=== PATIENT | female | born 1970 | race Caucasian/White ===

== ENCOUNTER 2018-03-10 08:37 | Emergency (ER) | payer MEDICARE, OTHER ==
[~2018-03-10] VITALS: Ht 167.6 cm; Wt 137.0 kg
--- NOTE | 2018-03-10 08:50 | NUR ---
JONAS FROM HOME ACCOMPANIED BY CAREGIVER FOR BEHAVIOR EVALUATION. PER REPORT PATIENT HAS BEEN AGGRESSIVE SINCE LST NIGHT, SCREAMING AND YELLING. PATIENT DENIES SI, NO HI, VSS
[2018-03-10] MEDS ORDERED: OLANZAPINE 5 MG TABLET ONE (09:57)
[2018-03-10] MEDS ORDERED: OLANZAPINE 5 MG TABLET PO ONE (10:00)
[2018-03-10] MEDS ORDERED: DIVALPROEX PO (10:05)
[2018-03-10] MEDS ORDERED: DILANTIN 100 MG (10:05)
[2018-03-10] MEDS ORDERED: BENICAR 20 MG (10:05)
[2018-03-10] MEDS ORDERED: MYRBETRIQ 25 MG (10:05)
[2018-03-10] MEDS ORDERED: RISPERIDONE 2 MG (10:05)
[2018-03-10] MEDS ORDERED: SEROQUEL 50 MG (10:05)
[2018-03-10] MEDS ORDERED: DOCUSATE SODIUM (10:05)
[2018-03-10] MEDS ORDERED: FERROUS SULFATE 325 MG (10:05)
[2018-03-10] MEDS ORDERED: ZOLOFT 100 MG (10:05)
[2018-03-10] MEDS ORDERED: LEVOTHYROXINE (10:05)
[2018-03-10] MEDS ORDERED: OLANZAPINE 10 MG VIAL IM ONE ×4 (10:07→13:00)
--- NOTE | 2018-03-10 10:18 | NUR ---
PATIENT MEDICATED ORDERED. CONNECTED TO TELE MONITOR
[2018-03-10 11:01] LABS: CALCIUM, SERUM 9.3 mg/dL (8.5-10.1); CARBON DIOXIDE 29 mmol/L (21-32); CHLORIDE 102 mmol/L (98-107); CREATININE 0.7 mg/dL (0.6-1.3); GLUCOSE 106 mg/dL (74-106); POTASSIUM 4.4 mmol/L (3.5-5.1); SODIUM SERUM 139 mmol/L (136-145); UREA NITROGEN, BLOOD 6 mg/dL (7-18)
[2018-03-10 11:05] LABS: BASOPHILS % (AUTO) 0.5 % (0.0-2.0); EOSINOPHILS % (AUTO) 1.9 % (0.0-6.0); HEMATOCRIT 38 % (33-45); HEMOGLOBIN 13.1 g/dL (11.5-14.8); LYMPHOCYTES # (AUTO) 1.7 /CMM (0.8-4.8); LYMPHOCYTES % (AUTO) 28.7 % (20.0-44.0); MEAN CORPUSCULAR HGB CONC 35 g/dl (31.0-36.0); MEAN CORPUSCULAR VOLUME 92 fL (82-100); MONOCYTES # (AUTO) 0.6 /CMM (0.1-1.30); NEUTROPHILS # (AUTO) 3.6 /CMM (1.8-8.9); NEUTROPHILS % (AUTO) 58.9 % (43.0-81.0); PLATELET COUNT (AUTO) 205 /CMM (150-450); RDW COEFFICIENT OF VARIATION 12.9 (11.5-15.0); RED BLOOD CELL COUNT(AUTO) 4.12 MIL/uL (4.0-5.2)
[2018-03-10 11:07] LABS: ALANINE AMINOTRANSFERASE 22 U/L (12-78); ALBUMIN 3.5 g/dL (3.4-5.0); ALCOHOL, BLOOD < 3 mg/dL (0-0); ALKALINE PHOSPHATASE 66 U/L (46-116); ASPARTATE AMINOTRANSFERASE 19 U/L (15-37); BILIRUBIN,DIRECT 0.1 mg/dL (0.0-0.2); BILIRUBIN,TOTAL 0.3 mg/dL (0.2-1.0)
[2018-03-10 11:49] LABS: THYROID STIMULATING HORMONE 3.349 uIU/mL (0.358-3.74); VALPROIC ACID 38 ug/mL (50-100)
[2018-03-10] MEDS ORDERED: VALPROATE 500 MG in IV NS 0.9% 100 ML IV STA (12:00)
[2018-03-10] MEDS ORDERED: DIVALPROEX SODIUM 500 MG TABLET.DR PO ONE ×2 (12:04→12:30)
--- NOTE | 2018-03-10 12:04 | NUR ---
CALLED [facility] FOR PSYCH EVAL, ETA WITHIN THE HOUR
--- NOTE | 2018-03-10 12:30 | NUR ---
PT RESTLESS, EXTREMELY AGITATED, YELLING, SCREAMING, REMOVED ALL HER CLOTHES. FATHER AT BS WITH CAREGIVER AND REFUSES TO HELP WITH PT. RECEIVED MEDS ORDERED BY DR. RUBIO. PT'S FATHER MADE AWARE ABOUT THE MEDS ORDERED AND REFUSED MEDS STATING THAT PT HAD SEIZURE FROM PREVIOUS MEDS GIVEN BACK IN 2004. FATHER DOES NOT WANT TO COOPERATE WITH THE ORDERS, URINE SAMPLE NOT OBATINED, REFUSED BY FATHER WELL. MADE AWARE.
[2018-03-10] MEDS ORDERED: LORAZEPAM INJ 2 MG/ML VIAL ONE ×2 (12:43→23:54)
[2018-03-10] MEDS ORDERED: LORAZEPAM INJ 2 MG/ML VIAL IM ONE (13:00)
[2018-03-10 13:52] LABS: PHENYTOIN (DILANTIN) 5.3 ug/ml (10.0-20.0)
--- NOTE | 2018-03-10 17:45 | NUR ---
PER PATIENT'S FATHER, PATIENT HAD SEIZURE. ASSESSED PATIENT AND NO EVIDENCE OF SEIZURE NOR POST ICTAL. PT;S VSS
--- NOTE | 2018-03-10 18:11 | NUR ---
PATIENT FOR RE- EVAL-- PLACEMENT. AWAITING FOR RN TEST BORE HELPER
--- NOTE | 2018-03-10 18:56 | NUR ---
AWAITING FOR [facility] RN. PATIENT'S FATHER AND CG AT BEDSIDE
--- NOTE | 2018-03-10 19:17 | NUR ---
[facility] RN AT BS
[2018-03-10 19:20] LABS: APPEARANCE,URINE CLEAR (CLEAR); BILIRUBIN,URINE NEGATIVE (NEGATIVE); BLOOD, URINE TRACE Ery/uL (NEGATIVE); COLOR,URINE YELLOW (YELLOW); KETONES,URINE NEGATIVE (NEGATIVE); LEUKOCYTE ESTERASE ,URINE NEGATIVE (NEGATIVE); NITRITE, URINE NEGATIVE (NEGATIVE); PROTEIN,URINE NEGATIVE (NEGATIVE); UGLUCOSE NEGATIVE (NEGATIVE); UROBILINOGEN,URINE 0.2 EU/dL (0.2)
[2018-03-10 19:37] LABS: BACTERIA,URINE 1+ /HPF (None Seen)
--- NOTE | 2018-03-10 22:15 | NUR ---
[facility] at bedside.
[2018-03-10] MEDS ORDERED: risperiDONE 1 MG TABLET ONE (22:38)
[2018-03-10] MEDS ORDERED: risperiDONE 1 MG TABLET PO ONE (23:00)
--- NOTE | 2018-03-10 23:45 | NUR ---
pt becoming agitated, screaming. Dr Fraser notified.
[2018-03-10] MEDS ORDERED: ZIPRASIDONE MESYLATE 20 MG/VIAL VIAL IM ONE (23:53)
[2018-03-11] MEDS ORDERED: ZIPRASIDONE MESYLATE 20 MG/VIAL VIAL IM ONE
[2018-03-11] MEDS ORDERED: LORAZEPAM INJ 2 MG/ML VIAL IM ONE
--- NOTE | 2018-03-11 02:51 | NUR ---
pt sitting in gurney. calm. no signs of distress noted. caregiver at bedside.
--- NOTE | 2018-03-11 05:07 | NUR ---
pt sleeping in [place]. no signs of dsitress noted. pt vital signs stable. caregiver at bedside. will cont to monitor pt.
--- NOTE | 2018-03-11 08:09 | NUR ---
CALLED AND SPOKE, TO FATHER EDUARDO CORDERO TO NOTIFY PT IS READY FOR DISCHARGE. FATHER STATES HE IS ON HIS WAY
[2018-03-11 09:23] VITALS: BP 145/92
--- NOTE | 2018-03-11 09:25 | NUR ---
Patient discharged to father to go back home in stable condition. Written and verbal after care instructions given. Patient's father and caregiver verbalizes understanding of instructions given. Pt wheelchaired out by RONALD Linda to the car. VSS upon discharge.
== END 2018-03-11 09:24 | disposition home or self-care (01) ==
LOC: ER 08:39
DX: F23 Brief psychotic disorder (principal); Z72.89 Other problems related to lifestyle; G40.909 Epilepsy, unspecified, not intractable, without status epilepticus; F84.0 Autistic disorder
CPT/HCPCS: 36415; 80048-TC; 80076-TC; 80164-TC; 80185-TC; 80305; 81000-TC; 84439-TC; 84443-TC; 85025-TC; A4606; G0480; J2060; J3486; J3490; J7030; Z7610

== ENCOUNTER 2018-05-11 15:37 | Emergency (ER) | payer MEDICARE, OTHER ==
[~2018-05-11] VITALS: Ht 167.6 cm; Wt 137.0 kg
[~2018-05-11 15:37] MED LIST: BENICAR 20 MG; DILANTIN 100 MG; DIVALPROEX PO; DOCUSATE SODIUM; FERROUS SULFATE 325 MG; LEVOTHYROXINE; MYRBETRIQ 25 MG; RISPERIDONE 2 MG; SEROQUEL 50 MG; ZOLOFT 100 MG
--- NOTE | 2018-05-11 15:40 | NUR ---
CAREGIVER CALLED D/T AGITATION, YELLING, AND HITTING SELF TODAY, HX SEVERE AUTISM. UNABLE TO OBTAIN VS AT THIS TIME, WILL REASSESS, NAD NOTED, VSS, RESP EVEN AND UNLABORED, PT WAS PUT ON MONITOR, WAITING FOR MD CARRION.
[2018-05-11] MEDS ORDERED: LORAZEPAM INJ 2 MG/ML VIAL IM ONE ×3 (16:00→20:00)
[2018-05-11] MEDS ORDERED: OLANZAPINE 10 MG VIAL IM ONE ×4 (16:00→20:00)
[2018-05-11] MEDS ORDERED: LORAZEPAM INJ 2 MG/ML VIAL ONE ×4 (16:02→19:50)
[2018-05-11] MEDS ORDERED: diphenhydrAMINE HCL 50 MG/ML VIAL ONE (16:58)
[2018-05-11] MEDS ORDERED: diphenhydrAMINE HCL 50 MG/ML VIAL IM ONE (17:00)
[2018-05-11 17:49] LABS: APPEARANCE,URINE Cloudy (CLEAR); BILIRUBIN,URINE Negative (NEGATIVE); BLOOD, URINE Moderate Ery/uL (NEGATIVE); COLOR,URINE Yellow (YELLOW); KETONES,URINE Trace (NEGATIVE); LEUKOCYTE ESTERASE ,URINE Small (NEGATIVE); NITRITE, URINE Positive (NEGATIVE); PH,URINE 6.5 (5.0-8.0); PROTEIN,URINE 100 mg/dl (NEGATIVE); UGLUCOSE Negative (NEGATIVE); UROBILINOGEN,URINE 0.2 EU/dL (0.2)
[2018-05-11 18:03] LABS: RBC,URINE 21-50 /HPF (0-2)
[2018-05-11 18:04] LABS: BACTERIA,URINE Many /HPF (None Seen)
[2018-05-11 18:05] LABS: SQUAMOUS EPITHELIAL CELL,UR Few /HPF (None Seen)
[2018-05-11 18:26] LABS: LYMPHOCYTES # (AUTO) 1.5 /CMM (0.8-4.8); PLATELET COUNT (AUTO) 199 /CMM (150-450); WHITE BLOOD COUNT (AUTO) 6.8 K/uL (4.3-11.0)
[2018-05-11 18:28] LABS: BASOPHILS % (AUTO) 0.3 % (0.0-2.0); EOSINOPHILS % (AUTO) 0.5 % (0.0-6.0); HEMATOCRIT 38 % (33-45); HEMOGLOBIN 13.4 g/dL (11.5-14.8); LYMPHOCYTES % (AUTO) 22.3 % (20.0-44.0); MEAN CORPUSCULAR HGB CONC 35 g/dl (31.0-36.0); MEAN CORPUSCULAR VOLUME 94 fL (82-100); MONOCYTES # (AUTO) 0.4 /CMM (0.1-1.30); MONOCYTES % (AUTO) 6.2 % (2.0-12.0); NEUTROPHILS # (AUTO) 4.9 /CMM (1.8-8.9); NEUTROPHILS % (AUTO) 70.7 % (43.0-81.0); RDW COEFFICIENT OF VARIATION 13.1 (11.5-15.0); RED BLOOD CELL COUNT(AUTO) 4.08 MIL/uL (4.0-5.2)
[2018-05-11 18:41] LABS: ALANINE AMINOTRANSFERASE 21 U/L (12-78); ALBUMIN 3.6 g/dL (3.4-5.0); ALCOHOL, BLOOD < 3 mg/dL (0-0); ALKALINE PHOSPHATASE 91 U/L (46-116); ASPARTATE AMINOTRANSFERASE 27 U/L (15-37); BILIRUBIN,DIRECT 0.1 mg/dL (0.0-0.2); BILIRUBIN,TOTAL 0.2 mg/dL (0.2-1.0); CALCIUM, SERUM 9.9 mg/dL (8.5-10.1); CARBON DIOXIDE 25 mmol/L (21-32); CHLORIDE 103 mmol/L (98-107); CREATININE 0.8 mg/dL (0.6-1.3); GLUCOSE 149 mg/dL (74-106); POTASSIUM 4.2 mmol/L (3.5-5.1); SODIUM SERUM 139 mmol/L (136-145); TOTAL PROTEIN, SERUM 8.2 g/dL (6.4-8.2); UREA NITROGEN, BLOOD 13 mg/dL (7-18)
[2018-05-11 18:42] LABS: ACETAMINOPHEN 0 ug/ml (10-30); SALICYLATE 1.6 mg/dL (2.8-20.0)
--- NOTE | 2018-05-11 19:29 | NUR ---
CALLED CASEMANAGER, PER ZAYAGER, FAMILY HAS TO CALL CT [facility] AND THE FAMILY KNOWS THIS.
[2018-05-11] MEDS ORDERED: CEPHALEXIN MONOHYDRATE 500 MG CAPSULE PO ONE ×2 (19:45→20:00)
--- NOTE | 2018-05-11 20:03 | NUR ---
TEZ PAGED, ASHISH HOOVER HAND CARVER COURT SPECIALIST
--- NOTE | 2018-05-11 20:07 | NUR ---
CALLED NURSING SUP. FOR MS BED
[2018-05-11 21:25] VITALS: BP 145/80
--- NOTE | 2018-05-11 21:25 | NUR ---
Patient discharged to home in stable condition. Written and verbal after care instructions given. Patient verbalizes understanding of instruction. Prescription given.
[2018-05-12] MEDS ORDERED: LEVO100T9 PO (18:17)
[2018-05-12] MEDS ORDERED: DIVA-78 PO ×2 (18:17)
[2018-05-12] MEDS ORDERED: QUET50TA14 PO (18:17)
[2018-05-12] MEDS ORDERED: PHEN100C4 PO (18:17)
[2018-05-12] MEDS ORDERED: LOSA25TA13 PO (18:17)
[2018-05-12] MEDS ORDERED: FERR325T24 PO (18:17)
[2018-05-12] MEDS ORDERED: DOCU-270 PO (18:17)
[2018-05-12] MEDS ORDERED: SERT100T12 PO (18:17)
[2018-05-12] MEDS ORDERED: OLME20TA13 PO (18:17)
== END 2018-05-11 21:26 | disposition home or self-care (01) ==
LOC: ER 15:39
DX: R45.1 Restlessness and agitation (principal); N39.0 Urinary tract infection, site not specified; G40.909 Epilepsy, unspecified, not intractable, without status epilepticus; F20.9 Schizophrenia, unspecified; E03.9 Hypothyroidism, unspecified; F84.0 Autistic disorder
CPT/HCPCS: 36415; 80048-TC; 80076-TC; 80305; 81000-TC; 84703-TC; 85025-TC; 87086-TC; 87186-TC; A4606; G0480; J1200; J2060; J3490; Z7610

== ENCOUNTER 2018-05-12 15:59 | Emergency (ER) | payer MEDICARE, OTHER ==
[~2018-05-12] VITALS: Ht 154.9 cm; Wt 132.0 kg
--- NOTE | 2018-05-12 16:10 | NUR ---
PT BIBRA WITH [employer] FROM HOME FOR INCREASED PHYSICAL AGGRESSION. PT WAS HERE YESTERDAY. NOTED SCREAMING, AGITATED. CAREGIVER AT BS. SEEN BY FOR EDUAR. VSS. SAFETY AND COMFORT MEASURES PROVIDED. WILL MONITOR.
[2018-05-12] MEDS ORDERED: HALOPERIDOL LACTATE INJ 5 MG/ML VIAL ONE (16:11)
[2018-05-12] MEDS ORDERED: diphenhydrAMINE HCL 50 MG/ML VIAL ONE (16:11)
[2018-05-12] MEDS ORDERED: LORAZEPAM INJ 2 MG/ML VIAL ONE (16:12)
[2018-05-12] MEDS ORDERED: HALOPERIDOL LACTATE INJ 5 MG/ML VIAL IM ONE (16:30)
[2018-05-12] MEDS ORDERED: LORAZEPAM INJ 2 MG/ML VIAL IM ONE (16:30)
[2018-05-12] MEDS ORDERED: diphenhydrAMINE HCL 50 MG/ML VIAL IM ONE (16:30)
--- NOTE | 2018-05-12 16:30 | NUR ---
PT MEDICATED ORDERED.
--- NOTE | 2018-05-12 16:45 | NUR ---
[facility] [employer]EVERAGE UNABLE TO DRAW BLOOD, PT STILL AGITATED AND REFUSES BLOOD DRAW.
--- NOTE | 2018-05-12 17:15 | NUR ---
PT'S FATHER AT BS. MARES SPOKE TO HIM ABOUT POC. AWAITING FOR HIM TO CONTACT HOTLINE NUMBER FOR THE DAUGHTER'S INSURANCE FOR [employer] TRANSFER.
--- NOTE | 2018-05-12 18:00 | NUR ---
MAINTENANCE CLERK AT FOR BLOOD DRAW.
[2018-05-12 18:13] LABS: BASOPHILS % (AUTO) 0.5 % (0.0-2.0); EOSINOPHILS % (AUTO) 0.2 % (0.0-6.0); HEMATOCRIT 36 % (33-45); HEMOGLOBIN 12.8 g/dL (11.5-14.8); LYMPHOCYTES # (AUTO) 1.3 /CMM (0.8-4.8); LYMPHOCYTES % (AUTO) 17.2 % (20.0-44.0); MEAN CORPUSCULAR HGB CONC 35 g/dl (31.0-36.0); MEAN CORPUSCULAR VOLUME 94 fL (82-100); MONOCYTES # (AUTO) 0.2 /CMM (0.1-1.30); MONOCYTES % (AUTO) 2.9 % (2.0-12.0); NEUTROPHILS # (AUTO) 5.9 /CMM (1.8-8.9); NEUTROPHILS % (AUTO) 79.2 % (43.0-81.0); PLATELET COUNT (AUTO) 186 /CMM (150-450); RDW COEFFICIENT OF VARIATION 13.2 (11.5-15.0); RED BLOOD CELL COUNT(AUTO) 3.85 MIL/uL (4.0-5.2); WHITE BLOOD COUNT (AUTO) 7.4 K/uL (4.3-11.0)
[2018-05-12 18:16] LABS: CALCIUM, SERUM 9.5 mg/dL (8.5-10.1); CARBON DIOXIDE 28 mmol/L (21-32); CHLORIDE 101 mmol/L (98-107); CREATININE 0.8 mg/dL (0.6-1.3); GLUCOSE 118 mg/dL (74-106); POTASSIUM 4.4 mmol/L (3.5-5.1); SODIUM SERUM 137 mmol/L (136-145); UREA NITROGEN, BLOOD 16 mg/dL (7-18)
[2018-05-12] MEDS ORDERED: FERR325T24 PO (18:17)
[2018-05-12] MEDS ORDERED: PHEN100C4 PO (18:17)
[2018-05-12] MEDS ORDERED: DOCU-270 PO (18:17)
[2018-05-12] MEDS ORDERED: QUET50TA14 PO (18:17)
[2018-05-12] MEDS ORDERED: DIVA-78 PO ×2 (18:17)
[2018-05-12] MEDS ORDERED: SERT100T12 PO (18:17)
[2018-05-12] MEDS ORDERED: LEVO100T9 PO (18:17)
[2018-05-12] MEDS ORDERED: OLME20TA13 PO (18:17)
[2018-05-12] MEDS ORDERED: LOSA25TA13 PO (18:17)
[2018-05-12 18:22] LABS: ALANINE AMINOTRANSFERASE 19 U/L (12-78); ALBUMIN 3.6 g/dL (3.4-5.0); ALCOHOL, BLOOD < 3 mg/dL (0-0); ALKALINE PHOSPHATASE 79 U/L (46-116); ASPARTATE AMINOTRANSFERASE 21 U/L (15-37); BILIRUBIN,DIRECT 0.1 mg/dL (0.0-0.2); BILIRUBIN,TOTAL 0.2 mg/dL (0.2-1.0); TOTAL PROTEIN, SERUM 7.9 g/dL (6.4-8.2)
[2018-05-12 18:23] LABS: SALICYLATE 1.2 mg/dL (2.8-20.0)
[2018-05-12 18:26] LABS: ACETAMINOPHEN < 2 ug/ml (10-30)
--- NOTE | 2018-05-12 19:00 | NUR ---
PT NOTED AWAKE AND CALM IN BED. THERAPIST/CG AT BS. WILL MONITOR.
--- NOTE | 2018-05-12 21:46 | NUR ---
PT'S DAD AT BS AND REPORTS THAT HE IS UNABLE TO COMMUNICATE WITH THE HOTLINE FOR [place]. MD AWARE. CG/THERAPIST REMAINS AT BS. PT REMAINS AWAKE AND CALM. REFUSES TO GIVE URINE SAMPLE AND REFUSES VS CHECK.
--- NOTE | 2018-05-13 03:00 | NUR ---
patient started yelling, not following directions of [facility] ED staff. MD Bhatia notified, medicated patient as ordered
[2018-05-13] MEDS ORDERED: OLANZAPINE 10 MG VIAL IM ONE ×4 (03:03→19:34)
[2018-05-13] MEDS ORDERED: LORAZEPAM INJ 2 MG/ML VIAL ONE ×2 (03:03→19:34)
[2018-05-13] MEDS ORDERED: LORAZEPAM INJ 2 MG/ML VIAL IM/IV ONE ×2 (03:30→19:30)
--- NOTE | 2018-05-13 04:00 | NUR ---
patient is now calm, resting in er bed, no distress noted. skin warm and dry, resp even and unlabored
--- NOTE | 2018-05-13 07:06 | NUR ---
PATIENT IS RESTING IN ER BED, NO DISTRESS NOTED WILL CONTINUE TO MONITOR
--- NOTE | 2018-05-13 09:46 | NUR ---
IMANI CALLED AND SPOKE WITH HEMANTH BELLO.
--- NOTE | 2018-05-13 11:20 | NUR ---
CALLED [facility] FOR A FOOD TRAY
--- NOTE | 2018-05-13 12:00 | NUR ---
PER DR. HENRIQUEZ HE IS NOT COMFORTABLE DISCHARGING PT TO HOME. PT'S DAD UPDATED WITH POC. PT REMAINS WITH THERAPIST/CG AT BS. PT IS NOTED AWAKE AND CALM.
--- NOTE | 2018-05-13 14:10 | NUR ---
ACCORDING TO PT'S DAD, HE HAS BEEN CALLING THE HOTLINE FOR HIS DAUGHTER'S CASE BUT HAS NOT BEEN RECEIVING ANY RESPONSE.
--- NOTE | 2018-05-13 16:05 | NUR ---
PT REFUSES VS CHECK.
--- NOTE | 2018-05-13 18:30 | NUR ---
CALLED FOOD TRAY FOR PT.
--- NOTE | 2018-05-13 19:15 | NUR ---
PT NOTED AGITATED AND RESTLESS, SCREAMING. CG AND DAD AT THE BS. MD AWARE. RECEIVED ORDERS, ORDERS CARRIED OUT. WILL MONITOR.
--- NOTE | 2018-05-13 21:26 | NUR ---
RECEIVED REPORT FROM DIONE PLATA FOR TUCKER.
--- NOTE | 2018-05-13 21:54 | NUR ---
CAREGIVER, TOMÁS AT BEDSIDE
--- NOTE | 2018-05-13 22:52 | NUR ---
PT REFUSED TO DO VS AT THIS TIME. RISK AND BENEFITS EXPLAINED X3. PT REMOVED SP02 AND BP CUFF. CAREGIVER AT BEDSIDE.
--- NOTE | 2018-05-14 01:02 | NUR ---
RESPatient is resting comfortably in bed with eyes closed. Easily aroused. caregiver at bedside for eval.
--- NOTE | 2018-05-14 03:22 | NUR ---
Patient is resting comfortably in bed with eyes closed. Easily aroused. caregiver at bedside for eval. pt refused vs at this time. risk and benefits explained x3. pt continues to remove bp cuff and sp02.
--- NOTE | 2018-05-14 06:37 | NUR ---
RPatient is resting comfortably in bed with eyes closed. Easily aroused. VSS
--- NOTE | 2018-05-14 06:52 | NUR ---
PER CAREGIVE REMOVED PULSE OX AND BP CUFF. RISK AND BENEFITS EXPLAINED X3.
--- NOTE | 2018-05-14 07:52 | NUR ---
PT AND CAREGIVER REC'D BREAKFAST TRAYS. PT APPEARS TO BE SLEEPING SOUNDLY.
--- NOTE | 2018-05-14 09:00 | NUR ---
LUCIANO received a call from nursing spinning and winding supervisor Julia informing LUCIANO that pt. has been here since Monday and pt's father is unable to care for pt. at home. LUCIANO met with pt's father in the ED. Pt. has severe autism and behavioral issues. Pt. is a consumer of the [facility]. Per dad, pt's CSC at [facility] is Primitivo Eng. LUCIANO informed pt's dad that he needs to speak to Primitivo the [facility] to assist him in placing the pt. in a [facility] for individuals with Special needs. [facility] Primitivo is responsible for finding pt. placement. Pt's dad Colleen informed LUCIANO he has left several messages for Primitivo. LUCIANO recommended he go to the [facility] this morning and speak to Primitivo, if he is not available to ask for the officer of the day or the spinning and winding supervisor. LUCIANO also called CSC Primitivo Eng at the [facility] and left him a voicemail message stating to assist the father is finding appropriate placement for the pt. Colleen informed LUCIANO he will take the pt. home and leave her with the caregiver and go to the [facility]. No other social service needs are requested at this time. SW is available, if needed. LUCIANO updated Dr. Rutherford and DIONE Gleason regarding the discharge plan.
--- NOTE | 2018-05-14 09:15 | NUR ---
LISHA, EXTERIOR DOOR INSTALLER, WAS AT THE BEDSIDE SPEAKING TO THE PT'S FATHER. PT TO BE D\C'D TO THE FATHER'S CARE.
[2018-05-14 09:31] VITALS: BP 138/78
== END 2018-05-14 09:29 | disposition home or self-care (01) ==
LOC: ER 16:01
DX: R46.89 Other symptoms and signs involving appearance and behavior (principal); F20.9 Schizophrenia, unspecified; G40.909 Epilepsy, unspecified, not intractable, without status epilepticus; F84.0 Autistic disorder
CPT/HCPCS: 36415; 80048-TC; 80076-TC; 84703-TC; 85025-TC; A4606; G0480; J1200; J1630; J2060; J3490; Z7610

== ENCOUNTER 2018-11-21 17:43 | Emergency (ER) | payer MEDICARE, OTHER ==
[~2018-11-21] VITALS: Ht 154.9 cm; Wt 133.8 kg
[~2018-11-21 17:43] MED LIST changes: -BENICAR 20 MG; -DILANTIN 100 MG; +DIVA-78 PO; -DIVALPROEX PO; +DOCU-270 PO; -DOCUSATE SODIUM; +FERR325T24 PO; -FERROUS SULFATE 325 MG; +LEVO100T9 PO; -LEVOTHYROXINE; +LOSA25TA27 PO; +OLME20TA13 PO; +PHEN100C4 PO; +QUET50TA15 PO; -RISPERIDONE 2 MG; -SEROQUEL 50 MG; +SERT100T12 PO; -ZOLOFT 100 MG
--- NOTE | 2018-11-21 17:54 | NUR ---
JONAS FROM HOME AGITATED, FAMILY CANT TAKE CARE OF HER. TO ER BED 5, HOOKED TO MONITOR, AWAITING MD CARRION
[2018-11-21] MEDS ORDERED: diphenhydrAMINE HCL 50 MG/ML VIAL ONE (17:58)
[2018-11-21] MEDS ORDERED: OLANZAPINE 10 MG VIAL IM ONE (17:58)
[2018-11-21] MEDS: diphenhydrAMINE HCL 50 MG/ML VIAL IM ONE (18:07)
[2018-11-21] MEDS: OLANZAPINE 10 MG VIAL IM ONE (18:07)
--- NOTE | 2018-11-21 18:25 | NUR ---
URINE SAMPLE SENT TO LAB
[2018-11-21 18:29] LABS: BASOPHILS % (AUTO) 0.3 % (0.0-2.0); EOSINOPHILS % (AUTO) 1.2 % (0.0-6.0); HEMATOCRIT 46 % (33-45); HEMOGLOBIN 15.2 g/dL (11.5-14.8); LYMPHOCYTES # (AUTO) 4.1 /CMM (0.8-4.8); LYMPHOCYTES % (AUTO) 46.4 % (20.0-44.0); MEAN CORPUSCULAR HGB CONC 33 g/dl (31.0-36.0); MEAN CORPUSCULAR VOLUME 97 fL (82-100); MONOCYTES # (AUTO) 0.8 /CMM (0.1-1.30); MONOCYTES % (AUTO) 8.7 % (2.0-12.0); NEUTROPHILS # (AUTO) 3.8 /CMM (1.8-8.9); NEUTROPHILS % (AUTO) 43.4 % (43.0-81.0); PLATELET COUNT (AUTO) 206 /CMM (150-450); RED BLOOD CELL COUNT(AUTO) 4.69 MIL/uL (4.0-5.2); WHITE BLOOD COUNT (AUTO) 8.8 K/uL (4.3-11.0)
[2018-11-21 18:35] LABS: APPEARANCE,URINE Clear (CLEAR); BILIRUBIN,URINE SMALL (NEGATIVE); BLOOD, URINE Small Ery/uL (NEGATIVE); COLOR,URINE Yellow (YELLOW); KETONES,URINE Trace (NEGATIVE); LEUKOCYTE ESTERASE ,URINE Negative (NEGATIVE); NITRITE, URINE Negative (NEGATIVE); PH,URINE 5.5 (5.0-8.0); PROTEIN,URINE Negative (NEGATIVE); UGLUCOSE Negative (NEGATIVE); UROBILINOGEN,URINE 0.2 EU/dL (0.2)
[2018-11-21 18:39] LABS: CALCIUM, SERUM 9.9 mg/dL (8.5-10.1); CARBON DIOXIDE 27 mmol/L (21-32); CHLORIDE 102 mmol/L (98-107); CREATININE 0.9 mg/dL (0.6-1.3); GLUCOSE 133 mg/dL (74-106); POTASSIUM 4.3 mmol/L (3.5-5.1); SODIUM SERUM 142 mmol/L (136-145); UREA NITROGEN, BLOOD 17 mg/dL (7-18)
[2018-11-21 18:39] LABS: BACTERIA,URINE Rare /HPF (None Seen); SQUAMOUS EPITHELIAL CELL,UR Few /HPF (None Seen); WBC,URINE 0-2 /HPF (0-3)
[2018-11-21 18:44] LABS: ALANINE AMINOTRANSFERASE 23 U/L (12-78); ALCOHOL, BLOOD < 3 mg/dL (0-0); ALKALINE PHOSPHATASE 139 U/L (46-116); ASPARTATE AMINOTRANSFERASE 18 U/L (15-37); BILIRUBIN,TOTAL 0.2 mg/dL (0.2-1.0); TOTAL PROTEIN, SERUM 8.6 g/dL (6.4-8.2)
[2018-11-21 18:45] LABS: ACETAMINOPHEN < 2 ug/ml (10-30); SALICYLATE 1.2 mg/dL (2.8-20.0)
--- NOTE | 2018-11-21 19:17 | NUR ---
RECEIVED VERBAL ORDER FROM DR LITTLE OF [facility].
[2018-11-21] MEDS ORDERED: LORAZEPAM INJ 2 MG/ML VIAL ONE (19:18)
[2018-11-21] MEDS: LORAZEPAM INJ 2 MG/ML VIAL IM ONE (19:27)
--- NOTE | 2018-11-21 19:37 | NUR ---
REPORT GIVEN TO ZULEMA PARHAM FOR TUCKER
--- NOTE | 2018-11-21 19:45 | NUR ---
SPOKE TO PATIENT'S FAMILY MEMBER MEGHANA, UPDATED REGARDING PLAN OF CARE, WITH VERBALIZATION OF UNDERSTANDING. PHONE NUMBER [phone]
[2018-11-21 22:11] VITALS: BP 129/88
== END 2018-11-21 22:12 | disposition home or self-care (01) ==
LOC: ER 17:46
DX: R45.1 Restlessness and agitation (principal); F84.0 Autistic disorder; G40.909 Epilepsy, unspecified, not intractable, without status epilepticus; F20.9 Schizophrenia, unspecified; Z79.899 Other long term (current) drug therapy
CPT/HCPCS: 36415; 80048-TC; 80076-TC; 80305; 81000-TC; 85025-TC; G0480; J1200; J2060; J3490

== ENCOUNTER 2019-10-08 11:10 | Emergency (ER) | payer MEDICARE, OTHER ==
[~2019-10-08] VITALS: Ht 154.9 cm; Wt 133.8 kg
--- NOTE | 2019-10-08 11:20 | NUR ---
Pt [id number] and lapd, from home, aggressive, combative, yelling and screaming. Pt aaox4, vss, breathing even and unlabored on room air w/ nad. Pt connected to the monitor.
--- NOTE | 2019-10-08 11:22 | NUR ---
AT BEDSIDE FOR EVAL.
[2019-10-08 11:40] LABS: BASOPHILS % (AUTO) 0.2 % (0.0-2.0); EOSINOPHILS % (AUTO) 0.8 % (0.0-6.0); HEMATOCRIT 39 % (33-45); HEMOGLOBIN 13.2 g/dL (11.5-14.8); LYMPHOCYTES # (AUTO) 1.4 /CMM (0.8-4.8); LYMPHOCYTES % (AUTO) 24.6 % (20.0-44.0); MEAN CORPUSCULAR HGB CONC 34 g/dl (31.0-36.0); MEAN CORPUSCULAR VOLUME 96 fL (82-100); MONOCYTES # (AUTO) 0.4 /CMM (0.1-1.30); MONOCYTES % (AUTO) 7.2 % (2.0-12.0); NEUTROPHILS # (AUTO) 3.8 /CMM (1.8-8.9); NEUTROPHILS % (AUTO) 67.2 % (43.0-81.0); PLATELET COUNT (AUTO) 188 /CMM (150-450); RED BLOOD CELL COUNT(AUTO) 4.09 MIL/uL (4.0-5.2); WHITE BLOOD COUNT (AUTO) 5.7 K/uL (4.3-11.0)
[2019-10-08 11:47] LABS: CALCIUM, SERUM 9.7 mg/dL (8.5-10.1); CARBON DIOXIDE 27 mmol/L (21-32); CHLORIDE 104 mmol/L (98-107); CREATININE 0.9 mg/dL (0.6-1.3); GLUCOSE 150 mg/dL (74-106); POTASSIUM 3.6 mmol/L (3.5-5.1); SODIUM SERUM 142 mmol/L (136-145); UREA NITROGEN, BLOOD 13 mg/dL (7-18)
[2019-10-08 11:54] LABS: ALANINE AMINOTRANSFERASE 20 U/L (12-78); ALBUMIN 3.7 g/dL (3.4-5.0); ALCOHOL, BLOOD < 3 mg/dL (0-0); ALKALINE PHOSPHATASE 102 U/L (46-116); ASPARTATE AMINOTRANSFERASE 15 U/L (15-37); BILIRUBIN,DIRECT 0.1 mg/dL (0.0-0.2); BILIRUBIN,TOTAL 0.2 mg/dL (0.2-1.0); TOTAL PROTEIN, SERUM 7.8 g/dL (6.4-8.2)
[2019-10-08 11:56] LABS: ACETAMINOPHEN < 2 ug/ml (10-30); SALICYLATE 1.6 mg/dL (2.8-20.0)
--- NOTE | 2019-10-08 12:02 | NUR ---
URINE COLLECTED AND SENT TO LAB
[2019-10-08 12:17] LABS: APPEARANCE,URINE Clear (CLEAR); BILIRUBIN,URINE Negative (NEGATIVE); BLOOD, URINE Trace-intact Ery/uL (NEGATIVE); COLOR,URINE Yellow (YELLOW); KETONES,URINE Negative (NEGATIVE); LEUKOCYTE ESTERASE ,URINE Negative (NEGATIVE); NITRITE, URINE Negative (NEGATIVE); PROTEIN,URINE Trace mg/dl (NEGATIVE); UGLUCOSE Negative (NEGATIVE); UROBILINOGEN,URINE 0.2 EU/dL (0.2)
[2019-10-08 12:22] LABS: BACTERIA,URINE Few /HPF (None Seen); SQUAMOUS EPITHELIAL CELL,UR Few /HPF (None Seen)
--- NOTE | 2019-10-08 12:40 | NUR ---
CALLED JONATAN PARHAM CRISISTEAM FOR PSYCH EVAL.
--- NOTE | 2019-10-08 13:07 | NUR ---
Patient is resting comfortably in bed with eyes closed. Easily aroused. VSS. Family at bedside
[2019-10-08] MEDS ORDERED: TOLT2TAB2 PO (13:29)
[2019-10-08] MEDS ORDERED: RISP2TAB23 PO (13:29)
[2019-10-08] MEDS ORDERED: MULT-439 PO (13:29)
[2019-10-08 13:51] LABS: VALPROIC ACID 50 ug/mL (50-100)
--- NOTE | 2019-10-08 14:14 | NUR ---
Patient is resting comfortably in bed with eyes closed. Easily aroused. VSS
--- NOTE | 2019-10-08 14:15 | NUR ---
RN JONATAN CRISISTEAM AT BEDSIDE FOR EVAL.
--- NOTE | 2019-10-08 15:29 | NUR ---
Patient discharged to home in stable condition. Written and verbal after care instructions given. Patient verbalizes understanding of instruction.
[2019-10-08 15:30] VITALS: BP 131/84
== END 2019-10-08 15:31 | disposition home or self-care (01) ==
LOC: ER 11:15
DX: F20.9 Schizophrenia, unspecified (principal); R45.6 Violent behavior; G40.909 Epilepsy, unspecified, not intractable, without status epilepticus; F84.0 Autistic disorder; Z88.8 Allergy status to other drugs, medicaments and biological substances; Z79.899 Other long term (current) drug therapy
CPT/HCPCS: 36415; 80048; 80076; 80164; 80305; 80307; 80329; 81001; 84702; 85025; 99284; G0480; 81000-TC

== ENCOUNTER 2023-12-12 11:26 | Emergency (ER) | payer MEDICARE, OTHER ==
[~2023-12-12] VITALS: Ht 172.7 cm; Wt 138.8 kg
[~2023-12-12 11:26] MED LIST changes: +MULT-439 PO; -MYRBETRIQ 25 MG; -OLME20TA13 PO; +RISP2TAB85 PO; +TOLT2TAB2 PO
[2023-12-12] MEDS ORDERED: LORAZEPAM 1 MG TABLET ONE (11:57)
[2023-12-12] MEDS ORDERED: IV NS 0.9% 1,000 ML BAG IV ONE (12:00)
[2023-12-12] MEDS ORDERED: LORAZEPAM INJ 2 MG/ML VIAL IV ONE (12:00)
[2023-12-12 12:01] LABS: BASOPHILS % (AUTO) 0.6 % (0.0-2.0); EOSINOPHILS # (AUTO) 0.2 K/uL (0.0-0.7); EOSINOPHILS % (AUTO) 2.1 % (0.0-6.0); HEMATOCRIT 39 % (33-45); HEMOGLOBIN 12.9 g/dL (11.5-14.8); LYMPHOCYTES # (AUTO) 2.1 K/uL (0.8-4.8); LYMPHOCYTES % (AUTO) 26.7 % (20.0-44.0); MEAN CORPUSCULAR HEMOGLOBIN 31 PG (26.0-33.0); MEAN CORPUSCULAR HGB CONC 33 g/dl (31.0-36.0); MEAN CORPUSCULAR VOLUME 94 fL (82-100); MONOCYTES # (AUTO) 0.7 K/uL (0.1-1.30); MONOCYTES % (AUTO) 8.9 % (2.0-12.0); NEUTROPHILS # (AUTO) 4.9 K/uL (1.8-8.9); NEUTROPHILS % (AUTO) 61.7 % (43.0-81.0); PLATELET COUNT (AUTO) 431 K/uL (150-450); RED CELL DISTRIBUTION WIDTH 14.4 % (11.5-15.0)
[2023-12-12 12:11] LABS: CALCIUM, SERUM 10.4 mg/dL (8.5-10.1); CREATININE 1.8 mg/dL (0.6-1.3); POTASSIUM 3.9 mmol/L (3.5-5.1)
[2023-12-12 12:14] LABS: INR 1.14 (0.91-1.10); PARTIAL THROMBOPLASTIN TIME 32.8 SEC (24.3-34.3)
[2023-12-12 12:15] LABS: PHENYTOIN (DILANTIN) 2.7 ug/ml (10.0-20.0)
[2023-12-12 12:19] LABS: BILIRUBIN,DIRECT 0.1 mg/dL (0.0-0.2); BILIRUBIN,TOTAL 0.3 mg/dL (0.2-1.0); TOTAL PROTEIN, SERUM 9.6 g/dL (6.4-8.2)
[2023-12-12] MEDS ORDERED: LORAZEPAM 1 MG TABLET PO ONE (12:30)
[2023-12-12] MEDS ORDERED: METOPROLOL TARTRATE INJ 5 MG/5 ML AMPUL ONE (12:46)
[2023-12-12] MEDS ORDERED: VALPROIC ACID 250 MG/5 ML UDC PO ONE (13:00)
[2023-12-12] MEDS ORDERED: METOPROLOL TARTRATE INJ 5 MG/5 ML AMPUL IV ONE (13:00)
[2023-12-12] MEDS ORDERED: VALPROIC ACID 250 MG/5 ML UDC ONE (13:08)
[2023-12-12] MEDS ORDERED: METOPROLOL TARTRATE 50 MG TABLET ONE (13:28)
[2023-12-12] MEDS ORDERED: METOPROLOL TARTRATE 50 MG TABLET PO ONE (13:30)
[2023-12-12 15:41] VITALS: BP 142/52; TEMP 98.4; O2SAT 100
== END 2023-12-12 15:44 | disposition home or self-care (01) ==
LOC: ER 11:30
DX: G40.909 Epilepsy, unspecified, not intractable, without status epilepticus (principal); F20.9 Schizophrenia, unspecified; Z88.8 Allergy status to other drugs, medicaments and biological substances; Z79.899 Other long term (current) drug therapy
CPT/HCPCS: 99285; 96374; 70450; 71045; 96361; 93005; 85025; 80048; 80185; 80076; 83735; 36415; 80164; 85730; J3490; J7030